=== PATIENT | male | born 1970 | race Caucasian/White ===

== ENCOUNTER 2020-11-25 06:11 | Day surgery (SDC) | payer BC ==
[2020-11-25] MEDS ORDERED: LACTATED RINGERS 1,000 ML ONE (06:57)
[2020-11-25] MEDS ORDERED: propofoL 200 MG/20 ML VIAL IV ONE (07:01)
[2020-11-25] MEDS ORDERED: ROCURONIUM 50 MG/5 ML INJ IV ONE ×2 (07:01→08:55)
[2020-11-25] MEDS ORDERED: LIDOCAINE MPF (2%) 20 MG/1 ML VIAL 5 ML ONE (07:01)
[2020-11-25] MEDS ORDERED: fentaNYL 100 MCG/2 ML INJ ONE (07:01)
[2020-11-25] MEDS ORDERED: LIDOCAINE (1%) 10 MG/1 ML VIAL 20 ML MDV ONE (07:06)
[2020-11-25] MEDS ORDERED: BUPIVACAINE/PF (0.5%) 5 MG/1 ML 30 ML VIAL INFILTRATI ONE ×2 (07:07→08:54)
--- NOTE | 2020-11-25 07:18 | Anesthesia Day of Surgery ---
Anesthesia Day of Surgery - Day of Surgery Patient Examined: Yes Patient H&P Reviewed: Yes Patient is NPO: Yes Beta Blockers: No Dc's Test: N/A
--- NOTE | 2020-11-25 07:20 | Anesthesia Consultation ---
Anesthesia Consult and Med Hx Date of service: 11/25/20 - Airway Anesthetic Teeth Evaluation: Good ROM Head & Neck: Adequate Mental/Hyoid Distance: Adequate Mallampati Class: Class I Intubation Access Assessment: Probably Good - Pulmonary Exam CTA: No - Cardiac Exam Cardiac Exam: No Murmur - Pre-Operative Health Status ASA Pre-Surgery Classification: ASA1 Proposed Anesthetic Plan: General Nerve Block: tap - Pulmonary Hx Smoking: Yes (STOPPED X 4 YRS) Hx Asthma: Yes (RARE INHALER USE) Hx Respiratory Symptoms: No Hx Sleep Apnea: No (JEFF PRE SCREEN HIGH RISK) - Cardiovascular System Hx Hypertension: No Hx Coronary Artery Disease: No Hx Heart Attack/AMI: No Hx Pacemaker: No - Central Nervous System Hx Neuromuscular Disorder: No Hx Seizures: No CVA: No Hx Psychiatric Problems: No - Gastrointestinal Hx Gastroesophageal Reflux Disease: No - Endocrine Hx Renal Disease: No Hx Insulin Dependent Diabetes: No Hx Non-Insulin Dependent Diabetes: No - Hematic Hx Anemia: No Hx Sickle Cell Disease: No - Other Systems Hx Alcohol Use: No Hx Cancer: No Hx Obesity: No
[2020-11-25] MEDS ORDERED: MIDAZOLAM 2 MG/2 ML INJ IV NR (07:21)
[2020-11-25] MEDS ORDERED: ACETAMINOPHEN 500 MG TAB ONE (07:28)
[2020-11-25] MEDS ORDERED: ACETAMINOPHEN 500 MG TAB PO NR (07:30)
[2020-11-25] MEDS ORDERED: LACTATED RINGERS 1,000 ML IV SCH (07:30)
[2020-11-25] MEDS ORDERED: CELECOXIB 200 MG CAP PO NR (08:00)
[2020-11-25] MEDS ORDERED: dexAMETHasone 20 MG/5 ML VIAL ONE (08:52)
[2020-11-25] MEDS ORDERED: NEOSTIGMINE 10MG/10 ML INJ MDV ONE (08:52)
[2020-11-25] MEDS ORDERED: GLYCOPYRROLATE 0.4 MG/2 ML INJ ONE (08:52)
[2020-11-25] MEDS ORDERED: ONDANSETRON 4 MG/2 ML INJ ONE (08:52)
[2020-11-25] MEDS ORDERED: LIDOCAINE (1%) 10 MG/1 ML VIAL 20 ML MDV INFILTRATI ONE (08:54)
[2020-11-25] MEDS ORDERED: KETOROLAC 30 MG/1 ML INJ ONE (09:03)
[2020-11-25] MEDS ORDERED: LACTATED RINGERS 2,000 ML ONE (09:07)
[2020-11-25] MEDS ORDERED: ceFAZolin/STERILE WATER 2 GM/20 ML SYRINGE IV NR (09:08)
--- NOTE | 2020-11-25 09:45 | Short Stay Summary ---
Short Stay Documentation Date of service: 11/25/20 - History Principal diagnosis: left inguinal hernia H&P: obtained from office - Allergies and Medications Current Medications: Allergies crab Allergy (Verified 11/14/20 17:09) Hives , SWELLING Home Medications Medication Instructions Recorded Confirmed Last Taken Type Albuterol Sulfate [Proventil Hfa] 2 puff IH PRN PRN 11/14/20 11/14/20 Unknown History Active Medications Cefazolin Sodium (Cefazolin/Sterile Water 2 Gm/20 Ml Syringe) 2 gm IV PREOP NR Stop: 11/25/20 20:00 Lactated Ringer's (Lactated Ringers) 1,000 mls @ 100 mls/hr IV DIRECT SRINIVASA Last Admin: 11/25/20 07:03 Dose: 100 mls/hr Documented by: - Brief post op/procedure progress note Date of procedure: 11/25/20 Pre-op diagnosis: left inguinal hernia Post-op diagnosis: same Procedure: robotic assisted left inguinal hernia repair with mesh Anesthesia: GETA, local - Hospital course Hospital course: Pt observed in PACU and discharged to home in stable condition when criteria met - Disposition Condition at discharge: Good Disposition: 01 HOME / SELF CARE / HOMELESS Short Stay Discharge Plan Activity: other (no heavy lifting) Diet: regular Wound: open to air, per your surgeon's advice Additional Instructions: SEE PRINTED DISCHARGE PAPERWORK Follow up with: PRIMARY CARE, [Primary Care Provider] - 7 Days LAURA DURON DO [Staff Physician] - 14 Days Prescriptions: Gabapentin 300 mg PO BID 3 Days #6 cap Ibuprofen [Motrin 800 MG tab] 800 mg PO Q8HR #30 tablet HYDROcodone/APAP 5-325 [[place] 5/325] 1 each PO Q6HR PRN #20 tablet PRN Reason: Pain , Severe (7-10)
[2020-11-25] MEDS ORDERED: HYDROmorphone 1 MG/1 ML INJ ONE (09:58)
[2020-11-25] MEDS: HYDROmorphone 1 MG/1 ML INJ IV PRN ×4 (09:59→10:29)
[2020-11-25] MEDS ORDERED: ONDANSETRON 4 MG/2 ML INJ IV PRN (10:00)
[2020-11-25] MEDS ORDERED: HYDROmorphone 1 MG/1 ML INJ IV PRN (10:00)
--- NOTE | 2020-11-25 10:10 | Operative Report ---
Operative Report Operative Report: Date of procedure: 11/25/20 Pre-op diagnosis: left inguinal hernia Post-op diagnosis: same Procedure: robotic assisted left inguinal hernia repair with mesh Surgeon: Annie Membreno DO Supervisor Cigar Making Hand: HILARY Spears Anesthesia: GETA, local Hospital course: Pt observed in PACU and discharged to home in stable condition when criteria met Condition at discharge: Good Disposition: 01 HOME / SELF CARE / HOMELESS HPI and indication: Patient is a 50-year-old male who was referred to the surgery clinic for a bulge in the left groin. He was found to have a reducible left inguinal hernia on physical exam. It was recommended that the hernia be repaired. I discussed all risk, benefits, alternatives to repair with the patient and questions were answered. I explained that if the hernia was found on the right side at the same time, this would be fixed as well. The patient was agreeable. Consent obtained for robotic assisted left inguinal hernia repair with mesh, possible right, possible open. Procedure in detail: Patient was identified in the preoperative area, take back to operating room placed on operative table in supine position. After anesthesia was induced a Farr catheter was sterilely placed by the circulating nurse. The abdomen and b/l groins were then prepped and draped in usual sterile fashion and a timeout performed. Local anesthetic was infiltrated to skin at the intended incision sites. A supraumbilical incision was made through which a Veress needle was inserted. Veress needle positioning was confirmed using saline drop test and the abdomen insufflated to 15 mmHg. Once the abdomen was insufflated, the Veress needle was removed and a 5 mm Optiview trocar was placed as incision. The abdomen is inspected there was no underlying injury to any of the abdominal structures. Patient was placed in Trendelenburg and the pelvis examined. There was a left inguinal hernia and no obvious hernia on the right. At this point, an 8 mm right upper quadrant and left upper quadrant robotic trocars were then placed under direct visualization. The 5 mm supraumbilical trocar was removed and replaced with a 12 mm balloon trocar under direct visualization. A Ray-Nicole was placed into the abdomen. The robot was then docked. A fenestrated bipolar was placed into arm #2 and a monopolar scissor in arm #1. The surgeon was then transferred to the console. First, I created a left sided preperitoneal flap. The peritoneum was scored approximately 5 to 6 cm from the hernia defect. The peritoneum was then incised from the midline to the ASIS. The preperitoneal flap was then developed in an avascular plane. I first defined the medial margin by dissecting to the pubic tubercle. The pubic tubercle was cleared of overlying fatty tissue using blunt dissection. I then created the lateral margin in a similar fashion. Great care was taken to avoid injury to any nerves. There was a direct inguinal hernia and the hernia sac was gently reduced using blunt dissection and transecting cremasteric fibers with electrocautery. During the dissection, the cord structures were identified and protected. The cord structures and vas deferens were visualized throughout the entire dissection. Once the hernia sac was completely reduced, the peritoneal flap was checked for hemostasis. Any additional cremasteric fibers that were were tenting up the peritoneum were divided. Hemostasis was carefully ensured. The hernia was repaired using a LEFT large 3D max mesh. The mesh along with suture material was placed into the abdomen by the assistant grocery. The mesh was positioned into the preperitoneal flap in the usual fashion. The medial portion of the mesh was sutured to Justin's ligament using an interrupted 2-0 Vicryl stitch. The lateral aspect of the mesh was sutured to the anterior lateral abdominal wall using a 2-0 Vicryl interrupted stitch. The mesh was seen to lay flat in the pocket with excellent coverage. An 18 F angiocath was introduced via the LLQ into the pocket under direct visualization. The peritoneum was then reapproximated using 3-0 running V-Loc stitch. A small defect in the peritoneum was repaired using a figure of 8, 0-vicryl sticth. The entirety of the mesh was covered with peritoneum. The robot was then undocked and the surgeon scrubbed back in. The remainder of the case was performed laparoscopically. All sharp materials along with a Ray-Nicole were removed from the abdomen under direct visualization. The 12 mm port was removed and the fascia closed using a interrupted 0 Vicryl stitch. The abdomen was then slowly desufflated and the mesh was seen to lay flat in the preperitoneal space. Any air in the preperitoneal pocket was evacuated via the angiocath and this was then removed. The remaining trocars were removed. Skin incisions were once again infiltrated with local anesthetic. A LEFT ilioinguinal nerve block was also performed with 5 cc of local anesthetic. The skin incisions were approximated with 4-0 Monocryl subcuticular stitches and skin glue. At the end of the case all sponge, instrument, sharp counts were correct x2. Patient was awoken from anesthesia and Farr catheter removed. Both testicles were palpated in the scrotum in anatomic position. The patient was taken to PACU in stable condition.
[2020-11-25] MEDS ORDERED: HYDROcodone/ACETAMINOPHEN 5-325 MG TAB PO PRN (10:30)
[2020-11-25 10:47] VITALS: BP 115/77
--- NOTE | 2020-11-25 16:34 | Post Anesthesia Evaluation ---
- Post Anesthesia Evaluation Patient Participated: Yes Airway Patent: Yes Stable Respiratory Function: Yes Nausea/Vomiting: No Temp > 96.8F: Yes Pain Manageable: Yes Adequeate Hydration: Yes Anesthesia Complications: Yes Block Receding Appropriately: Not Applicable Patient on Ventilator: No
[2020-11-26] MEDS ORDERED: ceFAZolin/STERILE WATER 2 GM/20 ML SYRINGE IV NR (08:00)
== END 2020-11-25 11:20 | disposition home or self-care (01) ==
LOC: OR 06:11 → EDBD 08:00 → OR 11:20
PROVIDERS: ATTEND Surgery
DX: K40.90 Unilateral inguinal hernia, without obstruction or gangrene, not specified as recurrent (principal); J45.909 Unspecified asthma, uncomplicated; Z87.891 Personal history of nicotine dependence; Z79.899 Other long term (current) drug therapy; Z98.890 Other specified postprocedural states; Z20.822 Contact with and (suspected) exposure to COVID-19
CPT/HCPCS: 49650; C1781; J1100; J1170; J1885; J2250; J2405; J2704; J2710; J3010; J7120; S2900; U0003